=== PATIENT | female | born 1995 | race Caucasian/White ===

== ENCOUNTER 2017-04-28 00:13 | Inpatient (IN) | payer OTHER ==
[2017-04-28] VITALS (16 sets, daily range): BP systolic 93–117; BP diastolic 41–72
[~2017-04-28] VITALS: Ht 157.5 cm; Wt 75.7 kg
[~2017-04-28 00:13] MED LIST: PRENATAL VITAMI1 TA2
[2017-04-28 00:44] LABS: URINE BILIRUBIN - DIPSTICK NEGATIVE (NEGATIVE); URINE BLOOD DIPSTICK NEGATIVE (NEGATIVE); URINE CLARITY CLEAR; URINE COLOR YELLOW; URINE GLUCOSE - DIPSTICK NEGATIVE (NEGATIVE); URINE KETONE TRACE mg/dL (NEGATIVE); URINE NITRITE - DIPSTICK NEGATIVE (Negative); URINE PH 6.5 (4.5-8.0); URINE PROTEIN - DIPSTICK NEGATIVE (NEG-TRACE); URINE SPECIFIC GRAVITY <=1.005; URINE UROBILINOGEN - DIPSTICK 0.2 E.U./dL (0.2)
[2017-04-28 00:49] LABS: BARBITURATES NEGATIVE (NEGATIVE); COCAINE NEGATIVE (NEGATIVE); METHADONE NEGATIVE (NEGATIVE); OXCYCODONE NEGATIVE (NEGATIVE); TETRAHYDROCANNABIONOL NEGATIVE (NEGATIVE); TRICYLIC ANTIDEPRESSANTS NEGATIVE (NEGATIVE); URINE LEUK ESTERASE MODERATE (NEGATIVE)
[2017-04-28 00:58] LABS: URINE BACTERIA MODERATE hpf; URINE RBC 0-2 RBC/hpf (0-5)
[2017-04-28] MEDS ORDERED: IRON325 M1 PO (00:58)
[2017-04-28 08:44] LABS: HEMATOCRIT 30.5 % (37.0-47.0); HEMOGLOBIN 10.1 g/dl (12.0-16.0); IMMATURE GRANULOCYTES 0.5 % (0.0-1.0); MEAN CELL VOLUME 96.2 fL CALC (80.0-100.0); MEAN CORPUSCULAR HGB 31.9 pG CALC (26.0-32.0); MEAN CORPUSCULAR HGB CONC 33.1 g/L CALC (32.0-36.0); RED BLOOD COUNT 3.17 mill/uL (4.20-5.60); RED CELL DISTRI WIDTH 13.3 % (11.5-15.5)
[2017-04-28 08:46] LABS: ALBUMIN 3.3 g/dL (3.2-5.0); ALKALINE PHOSPHATASE 91 u/l (38-126); ANION GAP 13 (6-22 (CALC)); BILIRUBIN, TOTAL 0.6 mg/dL (0.0-1.4); BUN 3 mg/dL (8-21); BUN/CREATININE RATIO 5 (12-20 (CALC)); CALCIUM 8.4 mg/dL (8.4-10.2); CARBON DIOXIDE 19 mmol/l (22-30); CHLORIDE 111 mmol/l (95-108); CREATININE 0.6 mg/dL (0.5-1.0); GFR > 60 ML/MIN (>=60 (CALC)); GFR FOR AFR.AMER. > 60 ML/MIN (>=60 (CALC)); GLUCOSE 80 mg/dL (70-106); POTASSIUM 3.8 mmol/l (3.5-5.1); SGOT/AST 26 u/l (14-36); SGPT/ALT 28 u/l (9-52); SODIUM 139 mmol/l (137-146)
[2017-04-29] VITALS (8 sets, daily range): BP systolic 103–112; BP diastolic 45–63
[2017-04-29 07:36] LABS: HEMATOCRIT 29.3 % (37.0-47.0); IMMATURE GRANULOCYTES 0.8 % (0.0-1.0); MEAN CELL VOLUME 94.2 fL CALC (80.0-100.0); MEAN CORPUSCULAR HGB 32.2 pG CALC (26.0-32.0); MEAN CORPUSCULAR HGB CONC 34.1 g/L CALC (32.0-36.0); NEUT# 10.65 thou/uL (2.00-7.15); RED BLOOD COUNT 3.11 mill/uL (4.20-5.60); RED CELL DISTRI WIDTH 13.4 % (11.5-15.5)
[2017-04-29 08:38] LABS: ALBUMIN 3.1 g/dL (3.2-5.0); ALKALINE PHOSPHATASE 111 u/l (38-126); ANION GAP 14 (6-22 (CALC)); BILIRUBIN, TOTAL 0.4 mg/dL (0.0-1.4); BUN 4 mg/dL (8-21); BUN/CREATININE RATIO 7 (12-20 (CALC)); CALCIUM 9.3 mg/dL (8.4-10.2); CARBON DIOXIDE 19 mmol/l (22-30); CHLORIDE 110 mmol/l (95-108); CREATININE 0.6 mg/dL (0.5-1.0); GFR > 60 ML/MIN (>=60 (CALC)); GFR FOR AFR.AMER. > 60 ML/MIN (>=60 (CALC)); GLUCOSE 77 mg/dL (70-106); POTASSIUM 3.4 mmol/l (3.5-5.1); SGOT/AST 18 u/l (14-36); SGPT/ALT 29 u/l (9-52); SODIUM 139 mmol/l (137-146); TOTAL PROTEIN 5.7 g/dL (6.3-8.2)
[2017-04-30] VITALS (7 sets, daily range): BP systolic 91–118; BP diastolic 44–55
[2017-04-30 02:51] LABS: HEMATOCRIT 25.5 % (37.0-47.0); HEMOGLOBIN 8.7 g/dl (12.0-16.0); IMMATURE GRANULOCYTES 0.7 % (0.0-1.0); MEAN CELL VOLUME 92.7 fL CALC (80.0-100.0); MEAN CORPUSCULAR HGB 31.6 pG CALC (26.0-32.0); MEAN CORPUSCULAR HGB CONC 34.1 g/L CALC (32.0-36.0); NEUT# 8.01 thou/uL (2.00-7.15); RED BLOOD COUNT 2.75 mill/uL (4.20-5.60); RED CELL DISTRI WIDTH 13.2 % (11.5-15.5)
[2017-04-30 02:57] LABS: ALBUMIN 2.5 g/dL (3.2-5.0); ALKALINE PHOSPHATASE 94 u/l (38-126); ANION GAP 12 (6-22 (CALC)); BILIRUBIN, TOTAL 0.2 mg/dL (0.0-1.4); BUN 3 mg/dL (8-21); BUN/CREATININE RATIO 5 (12-20 (CALC)); CARBON DIOXIDE 18 mmol/l (22-30); CHLORIDE 107 mmol/l (95-108); CREATININE 0.6 mg/dL (0.5-1.0); GFR > 60 ML/MIN (>=60 (CALC)); GFR FOR AFR.AMER. > 60 ML/MIN (>=60 (CALC)); GLUCOSE 115 mg/dL (70-106); POTASSIUM 2.8 mmol/l (3.5-5.1); SGOT/AST 13 u/l (14-36); SGPT/ALT 19 u/l (9-52); SODIUM 135 mmol/l (137-146); TOTAL PROTEIN 4.9 g/dL (6.3-8.2)
[2017-04-30 20:41] LABS: URINE BILIRUBIN - DIPSTICK NEGATIVE (NEGATIVE); URINE BLOOD DIPSTICK NEGATIVE (NEGATIVE); URINE CLARITY CLEAR; URINE COLOR YELLOW; URINE GLUCOSE - DIPSTICK NEGATIVE (NEGATIVE); URINE KETONE 40 mg/dL (NEGATIVE); URINE LEUK ESTERASE NEGATIVE (NEGATIVE); URINE NITRITE - DIPSTICK NEGATIVE (Negative); URINE PROTEIN - DIPSTICK NEGATIVE (NEG-TRACE); URINE UROBILINOGEN - DIPSTICK 0.2 E.U./dL (0.2)
[2017-05-01 02:00] VITALS: BP 114/68
[2017-05-01 06:00] VITALS: BP 99/45
[2017-05-01 06:18] LABS: HEMATOCRIT 22.2 % (37.0-47.0); HEMOGLOBIN 7.6 g/dl (12.0-16.0); IMMATURE GRANULOCYTES 1.1 % (0.0-1.0); MEAN CELL VOLUME 92.1 fL CALC (80.0-100.0); MEAN CORPUSCULAR HGB 31.5 pG CALC (26.0-32.0); MEAN CORPUSCULAR HGB CONC 34.2 g/L CALC (32.0-36.0); NEUT# 3.05 thou/uL (2.00-7.15); RED BLOOD COUNT 2.41 mill/uL (4.20-5.60)
[2017-05-01 06:35] LABS: ANION GAP 8 (6-22 (CALC)); BUN < 2 mg/dL (8-21); CALCIUM 7.9 mg/dL (8.4-10.2); CARBON DIOXIDE 21 mmol/l (22-30); CHLORIDE 109 mmol/l (95-108); CREATININE 0.5 mg/dL (0.5-1.0); GFR > 60 ML/MIN (>=60 (CALC)); GFR FOR AFR.AMER. > 60 ML/MIN (>=60 (CALC)); GLUCOSE 80 mg/dL (70-106); SODIUM 136 mmol/l (137-146)
[2017-05-01 07:19] VITALS: BP 114/64
[2017-05-01 09:13] VITALS: BP 114/75
== END 2017-05-01 09:34 | disposition short-term general hospital (02) | DRG 781 ==
LOC: OB 00:13 → OBOP 00:13 → OB 00:13 → OBOP 10:06 → OB 10:07
PROVIDERS: ADMIT Obstetrics & Gynecology; ATTEND Obstetrics & Gynecology
PROC: 02HV33Z Insertion of Infusion Device into Superior Vena Cava, Percutaneous Approach (ICD-10-PCS; principal; 2017-04-30)
PROC: B518ZZA Fluoroscopy of Superior Vena Cava, Guidance (ICD-10-PCS; 2017-04-30)
DX: O98.813 Other maternal infectious and parasitic diseases complicating pregnancy, third trimester (principal); A41.51 Sepsis due to Escherichia coli [E. coli]; O23.03 Infections of kidney in pregnancy, third trimester; N13.6 Pyonephrosis; O99.333 Smoking (tobacco) complicating pregnancy, third trimester; F17.210 Nicotine dependence, cigarettes, uncomplicated; O99.513 Diseases of the respiratory system complicating pregnancy, third trimester; J45.909 Unspecified asthma, uncomplicated; K08.9 Disorder of teeth and supporting structures, unspecified; O99.013 Anemia complicating pregnancy, third trimester; D64.9 Anemia, unspecified; Z16.12 Extended spectrum beta lactamase (ESBL) resistance; Z3A.30 30 weeks gestation of pregnancy

== ENCOUNTER 2017-06-16 15:36 | Inpatient (IN) | payer OTHER ==
[2017-06-16] VITALS (15 sets, daily range): BP systolic 98–126; BP diastolic 50–68
[~2017-06-16] VITALS: Ht 157.5 cm; Wt 68.9 kg
[~2017-06-16 15:36] MED LIST changes: +IRON325 M1 PO
[2017-06-16 15:45] LABS: URINE BLOOD DIPSTICK MODERATE (NEGATIVE); URINE CLARITY SLIGHT CLOUDY; URINE GLUCOSE - DIPSTICK NEGATIVE (NEGATIVE); URINE KETONE >=80 mg/dL (NEGATIVE); URINE LEUK ESTERASE NEGATIVE (NEGATIVE); URINE PH 6.5 (4.5-8.0); URINE PROTEIN - DIPSTICK 30 mg/dL (NEG-TRACE); URINE SPECIFIC GRAVITY 1.025; URINE UROBILINOGEN - DIPSTICK 0.2 E.U./dL (0.2)
[2017-06-16 15:47] LABS: URINE COLOR DK. YELLOW; URINE NITRITE - DIPSTICK POSITIVE (Negative)
[2017-06-16 15:48] LABS: URINE BILIRUBIN - DIPSTICK NEGATIVE (NEGATIVE)
[2017-06-16 15:49] LABS: BARBITURATES NEGATIVE (NEGATIVE); COCAINE NEGATIVE (NEGATIVE); METHADONE NEGATIVE (NEGATIVE); OXCYCODONE NEGATIVE (NEGATIVE); TETRAHYDROCANNABIONOL NEGATIVE (NEGATIVE); TRICYLIC ANTIDEPRESSANTS NEGATIVE (NEGATIVE)
[2017-06-16 15:51] LABS: URINE SQUAMOUS EPITHELIAL CELL FEW EPI/hpf (0-FEW)
[2017-06-16 15:52] LABS: URINE BACTERIA FEW hpf; URINE MUCUS FEW hpf (NONE-FEW)
[2017-06-16 17:07] LABS: HEMATOCRIT 31.1 % (37.0-47.0); HEMOGLOBIN 10.5 g/dl (12.0-16.0); IMMATURE GRANULOCYTES 0.8 % (0.0-1.0); MEAN CELL VOLUME 92.3 fL CALC (80.0-100.0); MEAN CORPUSCULAR HGB 31.2 pG CALC (26.0-32.0); MEAN CORPUSCULAR HGB CONC 33.8 g/L CALC (32.0-36.0); NEUT# 18.23 thou/uL (2.00-7.15); RED BLOOD COUNT 3.37 mill/uL (4.20-5.60); RED CELL DISTRI WIDTH 13.7 % (11.5-15.5)
[2017-06-16 17:26] LABS: ALBUMIN 3.7 g/dL (3.2-5.0); ALKALINE PHOSPHATASE 186 u/l (38-126); ANION GAP 15 (6-22 (CALC)); BILIRUBIN, TOTAL 0.9 mg/dL (0.0-1.4); BUN 5 mg/dL (7-17); BUN/CREATININE RATIO 8 (12-20 (CALC)); CALCIUM 9.2 mg/dL (8.4-10.2); CARBON DIOXIDE 18 mmol/l (22-30); CHLORIDE 105 mmol/l (95-108); CREATININE 0.7 mg/dL (0.5-1.0); GFR > 60 ML/MIN (>=60 (CALC)); GFR FOR AFR.AMER. > 60 ML/MIN (>=60 (CALC)); GLUCOSE 78 mg/dL (65-105); POTASSIUM 3.9 mmol/l (3.5-5.1); SGOT/AST 20 u/l (14-36); SGPT/ALT 29 u/l (9-52); SODIUM 134 mmol/l (137-146); TOTAL PROTEIN 6.5 g/dL (6.3-8.2)
[2017-06-17] VITALS (20 sets, daily range): BP systolic 85–130; BP diastolic 48–69
[2017-06-17 05:55] LABS: HEMATOCRIT 27.5 % (37.0-47.0); HEMOGLOBIN 9.4 g/dl (12.0-16.0); MEAN CELL VOLUME 91.7 fL CALC (80.0-100.0); MEAN CORPUSCULAR HGB 31.3 pG CALC (26.0-32.0); MEAN CORPUSCULAR HGB CONC 34.2 g/L CALC (32.0-36.0); NEUT# 15.01 thou/uL (2.00-7.15); RED CELL DISTRI WIDTH 13.4 % (11.5-15.5)
[2017-06-17 06:27] LABS: ALBUMIN 2.9 g/dL (3.2-5.0); ALKALINE PHOSPHATASE 154 u/l (38-126); ANION GAP 14 (6-22 (CALC)); BILIRUBIN, TOTAL 0.7 mg/dL (0.0-1.4); BUN 5 mg/dL (7-17); BUN/CREATININE RATIO 9 (12-20 (CALC)); CALCIUM 8.4 mg/dL (8.4-10.2); CARBON DIOXIDE 19 mmol/l (22-30); CHLORIDE 108 mmol/l (95-108); CREATININE 0.5 mg/dL (0.5-1.0); GFR > 60 ML/MIN (>=60 (CALC)); GFR FOR AFR.AMER. > 60 ML/MIN (>=60 (CALC)); GLUCOSE 89 mg/dL (65-105); POTASSIUM 3.4 mmol/l (3.5-5.1); SGOT/AST 16 u/l (14-36); SGPT/ALT 19 u/l (9-52); SODIUM 137 mmol/l (137-146); TOTAL PROTEIN 5.5 g/dL (6.3-8.2)
[2017-06-18 02:38] VITALS: BP 95/57
[2017-06-18 06:22] LABS: HEMATOCRIT 25.5 % (37.0-47.0); HEMOGLOBIN 8.6 g/dl (12.0-16.0); IMMATURE GRANULOCYTES 0.7 % (0.0-1.0); MEAN CELL VOLUME 93.1 fL CALC (80.0-100.0); MEAN CORPUSCULAR HGB 31.4 pG CALC (26.0-32.0); MEAN CORPUSCULAR HGB CONC 33.7 g/L CALC (32.0-36.0); NEUT# 8.74 thou/uL (2.00-7.15); RED BLOOD COUNT 2.74 mill/uL (4.20-5.60); RED CELL DISTRI WIDTH 13.6 % (11.5-15.5)
[2017-06-18 09:20] VITALS: BP 104/54
[2017-06-18 14:11] VITALS: BP 106/46
[2017-06-18 17:13] VITALS: BP 106/47
[2017-06-18 19:10] VITALS: BP 119/54
[2017-06-18 19:15] VITALS: BP 119/54
[2017-06-19 10:54] VITALS: BP 101/63
[2017-06-19 15:00] VITALS: BP 119/57
[2017-06-19 21:10] VITALS: BP 105/62
[2017-06-19 22:00] VITALS: BP 118/58
[2017-06-19 23:00] VITALS: BP 118/58
[2017-06-20] VITALS (23 sets, daily range): BP systolic 106–142; BP diastolic 53–78
[2017-06-20 06:44] LABS: HEMATOCRIT 25.2 % (37.0-47.0); HEMOGLOBIN 8.6 g/dl (12.0-16.0); IMMATURE GRANULOCYTES 0.5 % (0.0-1.0); MEAN CELL VOLUME 91.6 fL CALC (80.0-100.0); MEAN CORPUSCULAR HGB 31.3 pG CALC (26.0-32.0); MEAN CORPUSCULAR HGB CONC 34.1 g/L CALC (32.0-36.0); NEUT# 5.36 thou/uL (2.00-7.15); RED BLOOD COUNT 2.75 mill/uL (4.20-5.60); RED CELL DISTRI WIDTH 13.3 % (11.5-15.5)
[2017-06-21] VITALS (28 sets, daily range): BP systolic 103–138; BP diastolic 54–87
[2017-06-23] MEDS ORDERED: MACROBID100 MG PO (14:25)
[2017-06-23] MEDS ORDERED: MACRODANTIN100 MG PO (14:27)
== END 2017-06-21 15:05 | disposition home or self-care (01) | DRG 781 ==
LOC: OB 15:36 → OBOP 15:36 → OB 16:00
PROVIDERS: ADMIT Obstetrics & Gynecology; ATTEND Obstetrics & Gynecology
PROC: 3E0P3VZ Introduction of Hormone into Female Reproductive, Percutaneous Approach (ICD-10-PCS; principal; 2017-06-20)
DX: O23.03 Infections of kidney in pregnancy, third trimester (principal); O36.5930 Maternal care for other known or suspected poor fetal growth, third trimester, not applicable or unspecified; N12 Tubulo-interstitial nephritis, not specified as acute or chronic; F17.210 Nicotine dependence, cigarettes, uncomplicated; J45.909 Unspecified asthma, uncomplicated; O99.513 Diseases of the respiratory system complicating pregnancy, third trimester; O99.333 Smoking (tobacco) complicating pregnancy, third trimester; B96.20 Unspecified Escherichia coli [E. coli] as the cause of diseases classified elsewhere; O61.0 Failed medical induction of labor; Z3A.36 36 weeks gestation of pregnancy

== ENCOUNTER 2017-06-28 04:38 | Inpatient (IN) | payer OTHER ==
[2017-06-28] VITALS (56 sets, daily range): BP systolic 87–138; BP diastolic 42–85
[~2017-06-28] VITALS: Ht 157.5 cm; Wt 69.4 kg
[~2017-06-28 04:38] MED LIST changes: +MACROBID100 MG PO; +MACRODANTIN100 MG PO
--- NOTE | 2017-06-28 04:44 | NUR ---
ARRIVAL TO OB UNIT ACCOMPANIED BY MOTHER, C/O LABOR. ORIENTED TO ROOM AND CALL SYSTEM. [id number], EDC 06/30/17 = 39+5 WEEKS GESTATION. DENIES BLEEDING/ROM. FETUS ACTIVE. PLAN OF CARE TO MONITOR FOR WELL-BEING AND UTERINE ACTIVITY, OBTAIN URINE SAMPLE FOR ANALYSIS AND DOA, CERVICAL EXAM FOR LABOR PROGRESS, DISCUSSED WITH PATIENT AND AGRED UPON.
[2017-06-28 05:07] LABS: URINE BILIRUBIN - DIPSTICK NEGATIVE (NEGATIVE); URINE BLOOD DIPSTICK NEGATIVE (NEGATIVE); URINE CLARITY CLEAR; URINE COLOR YELLOW; URINE GLUCOSE - DIPSTICK NEGATIVE (NEGATIVE); URINE KETONE NEGATIVE (NEGATIVE); URINE LEUK ESTERASE NEGATIVE (NEGATIVE); URINE NITRITE - DIPSTICK NEGATIVE (Negative); URINE PH 6.5 (4.5-8.0); URINE PROTEIN - DIPSTICK NEGATIVE (NEG-TRACE); URINE UROBILINOGEN - DIPSTICK 0.2 E.U./dL (0.2)
[2017-06-28 05:10] LABS: BARBITURATES NEGATIVE (NEGATIVE); COCAINE NEGATIVE (NEGATIVE); METHADONE NEGATIVE (NEGATIVE); OXCYCODONE NEGATIVE (NEGATIVE); TETRAHYDROCANNABIONOL NEGATIVE (NEGATIVE); TRICYLIC ANTIDEPRESSANTS NEGATIVE (NEGATIVE)
--- NOTE | 2017-06-28 05:46 | NUR ---
MONITOR REMOVED SO PT CAN AMBULATE IN HALLWAY. STATES CAN'T FEEL CONTRACTIONS, NO PAIN. STATES SHE FEELS THEY ARE SPREADING OUT. STATES BABY IS STILL ACTIVE. PT'S MOTHER REMAINS IN ROOM.
--- NOTE | 2017-06-28 06:36 | NUR ---
BACK TO ROOM STATING SHE IS TIRED AND WANTS TO REST. MONITOR REAPPLIED. STATES PAIN LEVEL IS 0/10 WITH CONTRACTIONS.
--- NOTE | 2017-06-28 06:52 | NUR ---
REPORT GIVEN TO VIOLETTA LEYVA RN ON PT STATUS. PT DOZING ON AND OFF IN BED. MOTHER REMAINS AT BEDSIDE.
--- NOTE | 2017-06-28 06:58 | NUR ---
SVE of 1 to 2 cm, 30%, 0 station.
--- NOTE | 2017-06-28 07:00 | NUR ---
heart rate of 135, Contractions noted every 8 minutes lasting 50 to 60 seconds in duration.
--- NOTE | 2017-06-28 07:01 | NUR ---
Call to Dr. Spangler to notify of patient's presence on unit. SVE of 1 to 2 cm, -1 station, 30% effacement.
--- NOTE | 2017-06-28 07:05 | NUR ---
Patient informed that Dr. Spangler will be on unit to talk to patient and see her.
--- NOTE | 2017-06-28 07:30 | NUR ---
Patient lying on her side at present moment. [place] on. Patient denies feeling any contractions.
--- NOTE | 2017-06-28 08:20 | NUR ---
Dr. Spangler on unit assessing patient at present time. SVE done with result of 2 cm, 80%, -2 station. Order for labs and IV of LR and Pitocin induction to begin at 2mu/min.
--- NOTE | 2017-06-28 09:00 | NUR ---
[place] started by Driss Owens RN from ER after 2 attempts by RN. I8 guage catheter to left forearm started with IV fluids of LR at 125cc/hr. Labs for CBC, CMP, and Type and screen drawn and sent to lab after consent for treatment done.
--- NOTE | 2017-06-28 09:40 | NUR ---
Pitocin at 2mu/min initiated at present time.
--- NOTE | 2017-06-28 09:40 | NUR ---
heart rate baseline of 120, Moderate variability, good accels, no decels noted.
[2017-06-28 09:43] LABS: HEMATOCRIT 30.5 % (37.0-47.0); HEMOGLOBIN 10.3 g/dl (12.0-16.0); IMMATURE GRANULOCYTES 0.8 % (0.0-1.0); MEAN CELL VOLUME 91.9 fL CALC (80.0-100.0); MEAN CORPUSCULAR HGB CONC 33.8 g/L CALC (32.0-36.0); NEUT# 9.09 thou/uL (2.00-7.15); RED BLOOD COUNT 3.32 mill/uL (4.20-5.60); RED CELL DISTRI WIDTH 13.9 % (11.5-15.5)
[2017-06-28 09:53] LABS: ALBUMIN 3.5 g/dL (3.2-5.0); ALKALINE PHOSPHATASE 159 u/l (38-126); ANION GAP 14 (6-22 (CALC)); BILIRUBIN, TOTAL 0.4 mg/dL (0.0-1.4); BUN 8 mg/dL (7-17); BUN/CREATININE RATIO 16 (12-20 (CALC)); CALCIUM 9.6 mg/dL (8.4-10.2); CARBON DIOXIDE 20 mmol/l (22-30); CHLORIDE 110 mmol/l (95-108); CREATININE 0.5 mg/dL (0.5-1.0); GFR > 60 ML/MIN (>=60 (CALC)); GFR FOR AFR.AMER. > 60 ML/MIN (>=60 (CALC)); GLUCOSE 81 mg/dL (65-105); POTASSIUM 4.5 mmol/l (3.5-5.1); SGOT/AST 14 u/l (14-36); SGPT/ALT 31 u/l (9-52); SODIUM 138 mmol/l (137-146); TOTAL PROTEIN 6.4 g/dL (6.3-8.2)
--- NOTE | 2017-06-28 09:56 | NUR ---
Patient up to bathroom and voided 400cc of urine.
--- NOTE | 2017-06-28 10:42 | NUR ---
Pitocin at 4mu/min initiated. heart of 125. Moderate variability, good accels no decels noted. contractions irregular occuring every 15 minutes. Patient denies feeling any pain at present moment.
--- NOTE | 2017-06-28 11:08 | NUR ---
Patient's mother to bedside at present time offering support at this time.
--- NOTE | 2017-06-28 11:09 | NUR ---
Patient denies feeling any contractions at this time. Will continue to monitor.
--- NOTE | 2017-06-28 11:25 | NUR ---
Pitocin up to 6 mu/min at present time.
--- NOTE | 2017-06-28 11:25 | NUR ---
Patient having contractions every 2 to 3 minutes lasting 50 to 60 seconds in duration. Patient denies feeling contractions.
--- NOTE | 2017-06-28 11:40 | NUR ---
Dr. Spangler on unit. AROM for clear fluids at present time. Patient instructed that contractions will picking belt operator at this time and get stronger and closer together. Patient verbalized understanding of such.
--- NOTE | 2017-06-28 12:50 | NUR ---
Patient in room with mother to bedside. Patient states she is starting feel contractions at present moment.
--- NOTE | 2017-06-28 12:51 | NUR ---
heart rate with baseline of 135, Moderate variability, good accels, no decels.
--- NOTE | 2017-06-28 12:52 | NUR ---
Pitocin continues at 6mu/min at present time. Contractions occuring with 5 in 10 minutes. Will continue to monitor.
--- NOTE | 2017-06-28 13:37 | NUR ---
Penicillin G 2.5mu given IV as ordered.
--- NOTE | 2017-06-28 14:25 | NUR ---
Contractions becoming irregular occuring every 1 to 9 minutes. Pitocin up to 8mu/min, heart rate baseline of 135, Moderate variability, good accels, no decels. [place] readjusted. Patient states pain level of 4 on scale of 1 to 10. Denies feeling urge to push or pressure at this time.
--- NOTE | 2017-06-28 14:25 | NUR ---
Patient lying on her right side at this time stating that she feels comfortable.
--- NOTE | 2017-06-28 15:21 | NUR ---
Patient up to bathroom voided 900cc of urine. Patient states she would like pain medication. SVE of 4cm, 80% effaced, -2 station.
--- NOTE | 2017-06-28 15:21 | NUR ---
Nubain 10mg iv given as ordered.
--- NOTE | 2017-06-28 15:54 | NUR ---
Patient resting in between contractions with eyes closed breathing comfortably. Significant other to bedside along with mother of patient offering emotional support.
--- NOTE | 2017-06-28 16:11 | NUR ---
Patient states she feels contractions and rating her pain of 8 on a scale of 1 to 10. Patient breathing in between contractions.
--- NOTE | 2017-06-28 16:30 | NUR ---
Dr. Spangler on unit, SVE done with 5cm, 90%, and 0 station.
--- NOTE | 2017-06-28 16:45 | NUR ---
Patient voided 500cc of urine well.
--- NOTE | 2017-06-28 16:45 | NUR ---
Patient moved to birthing room at present time.
--- NOTE | 2017-06-28 17:00 | NUR ---
Penicillin 2.5 given iv as ordered.
--- NOTE | 2017-06-28 17:30 | NUR ---
Dr. Spangler called and notified that pitocin off as variables noted. SVE done with result of rim and patient pushing with contractions per md order.
--- NOTE | 2017-06-28 17:52 | NUR ---
heart sounds via ultrasound difficult. Patient placed on side. Oxygen via mask, Dr. Spangler notified after heart rate of 135. FSE placed via Dr. Spangler.
--- NOTE | 2017-06-28 18:15 | NUR ---
Patient breathing in between contractions. heart rate of 125 baseline. Contractions occuring every 2 to 3 minutes lasting from 30 to 60 seconds in duration.
--- NOTE | 2017-06-28 18:30 | NUR ---
Dr. Spangler in room discussing option of epidural with patient. Patient verbalizes understanding and agrees for epidural.
--- NOTE | 2017-06-28 18:39 | NUR ---
CALL PLACED TO Ilda BENTLEY CRNA AND REPORT GIVEN RE/ MD REQUEST FOR EPIDURAL. STATES WILL BE HERE TO ASSESS.
--- NOTE | 2017-06-28 18:45 | NUR ---
Report being given to oncoming shift.
--- NOTE | 2017-06-28 18:45 | NUR ---
WATCH INSPECTOR FINAL MOVEMENT ON UNIT.
--- NOTE | 2017-06-28 19:10 | NUR ---
MIRNA BENTLEY, POLYMER TESTER, IN AND ADMINISTERING EPIDURAL ANESTHESIA. FAMILY AT BEDSIDE, SUPPORTING PT.
--- NOTE | 2017-06-28 19:20 | NUR ---
PER Arlene LEYVA RN, TOBACCO CESSATION WAS DISCUSSED EARLIER WITH PATIENT AND LITERATURE WAS OFFERED. AT THIS TIME, PATIENT DECLINED.
--- NOTE | 2017-06-28 20:30 | NUR ---
DR. VELARDE PERFORMED SVE. ORDERS RECEIVED TO RESTART IV PITOCIN FOR LABOR AUGMENTATION ON MED. PUMP.VARIABLE DECELERATION NOTED FOR 20SEC WHEN PT WAS POSITIONED ON BACK FOR EXAM. FHR RETURNED TO BASELINE OF 120 AFTER EXAM.
--- NOTE | 2017-06-28 21:19 | NUR ---
DR. VELARDE INFORMED OF LATE DECELERATIONS AND PITOCIN DISCONTINUED. WILL BE HERE TO EVALUATE.
--- NOTE | 2017-06-28 21:30 | NUR ---
2119: BASELINE FHR 120BPM. UTERINE CONTRACTIONS Q2-5MINS WITH VARIABLE DECELS. NOTED. IV PITOCIN TURNED OFF, AT 2109 HRS, DR. VELARDE ON UNIT, O2 BY NON-BREATHER MASK ADM. AT10L. 2129: DR VELARDE IN ROOM AND INSTRUCTED PT TO PUSH.
--- NOTE | 2017-06-28 21:49 | NUR ---
OF A LIVING MALE BY DR. VELARDE.
--- NOTE | 2017-06-28 23:30 | NUR ---
PT. ASSISTED OOB TO BATHROOM. NO DIZZINESS. VOIDED. PERICARE DEMONSTRATED AND PT. RETURNED DEMO.SATISFACTORLY. TRANSFERED TO ROOM WHERE SHE BOBDED WITH HER .IV FLUID WITH PITOCIN INFUSING. NO C/O DISCOMFORT AT THIS TIME. SNACK GIVEN.
[2017-06-29] VITALS: BP 127/61
--- NOTE | 2017-06-29 04:36 | NUR ---
RESTING WITH EYES CLOSED. SIDE RAILS UP X 2, CALL BAKER WITHIN REACH.
[2017-06-29 05:50] VITALS: BP 111/69
--- NOTE | 2017-06-29 05:50 | NUR ---
LABS DRAWN FROM RT. ANTECUBITAL WITHOUT DIFFICULTY. PATIENT TOLERATED WELL. IV INFUSING ORDERED. REINFORCED PREVIOUS TEACHING TO CHANGE PERIPADS EVERY 2 HOURS WHILE AWAKE AND KEEP BLADDER EMPTY. VERBALIZED UNDERSTANDING.
[2017-06-29 06:02] LABS: HEMATOCRIT 27.5 % (37.0-47.0); HEMOGLOBIN 9.5 g/dl (12.0-16.0); IMMATURE GRANULOCYTES 0.6 % (0.0-1.0); MEAN CELL VOLUME 90.2 fL CALC (80.0-100.0); MEAN CORPUSCULAR HGB 31.1 pG CALC (26.0-32.0); MEAN CORPUSCULAR HGB CONC 34.5 g/L CALC (32.0-36.0); NEUT# 12.32 thou/uL (2.00-7.15); RED BLOOD COUNT 3.05 mill/uL (4.20-5.60); RED CELL DISTRI WIDTH 13.7 % (11.5-15.5)
--- NOTE | 2017-06-29 06:27 | NUR ---
NO FURTHER CLINICAL NEEDS IDENTIFIED AT THIS TIME. REPORT PREPARED FOR ONCOMING SHIFT.
--- NOTE | 2017-06-29 07:11 | NUR ---
PT SLEEPING IN ROOM COMFORTABLY. PT DENIES ANY PAIN OR EXCESSIVE BLEEDING. PT REQUESTS TO SLEEP A LITTLE LONGER. RN WILL CONTINUE TO MONITOR.
--- NOTE | 2017-06-29 11:30 | NUR ---
ESTUARDO POLLACK HEALTHY START AT BEDSIDE DISCUSSING OPTIONS WITH MOTHER.
[2017-06-29 13:39] VITALS: BP 115/63
--- NOTE | 2017-06-29 17:39 | NUR ---
PT IN ROOM WITH INFANT, PT EATING GOURMET MEAL. PT DENIES ANY NEEDS AT THIS TIME.
[2017-06-29 17:56] VITALS: BP 119/55
--- NOTE | 2017-06-29 18:45 | NUR ---
REPORT RECEIVED FROM RAJIV RO RN ON PT STATUS. PT HOLDING . HAS NO COMPLAINTS OF PAIN. BED IN LOW POSITION AND CALL LIGHT WITHIN REACH. SIGNIFICANT OTHER AT BEDSIDE.
[2017-06-29 19:47] VITALS: BP 117/58
--- NOTE | 2017-06-29 21:25 | NUR ---
PT HOLDING . HAS NO COMPLAINTS OF PAIN OR DISCOMFORT. BED IN LOW POSITION, CALL LIGHT WITHIN REACH. PO FLUIDS GIVEN REQUESTED BY PT. SIGNIFICANT OTHER AT BEDSIDE.
--- NOTE | 2017-06-29 23:35 | NUR ---
WATCHING TV. NO COMPLAINTS. DENIES PAIN.
--- NOTE | 2017-06-30 02:12 | NUR ---
PT SLEEPING SOUNDLY. NO SIGNS OF DISTRESS. CALL LIGHT WITHIN REACH. INFANT AND SIGNIFICANT OTHER SLEEPING.
--- NOTE | 2017-06-30 06:26 | NUR ---
PT SLEEPING SOUNDLY. NO SIGNS OF DISTRESS. BED IN LOW POSITION AND CALL LIGHT WITHIN REACH. BATHROOM LIGHT ON FOR SAFETY.
--- NOTE | 2017-06-30 07:00 | NUR ---
RECEIVED CARE OF PT. RESTING IN BED WITH SIGNIFICANT OTHER AT BEDSIDE. CARE REVIEWED. PT STATES SHE HAD BOWEL MOVEMENT. DENIES PAIN AT THIS TIME, DENIES S/S OF DEPRESSION. EPIDURAL SITE WNL, NO REDNESS OR SWELLING. VITAL SIGNS CHARTED. PT WITH NO QUESTIONS OR CONCERNS. CALL LIGHT WITHIN REACH.
[2017-06-30 07:21] VITALS: BP 103/56
--- NOTE | 2017-06-30 09:30 | NUR ---
Dr Spangler in to see pt. Received new orders. Pt instructed to go to Dr office immediately if fever develops or pt has problems with kidneys. Pt verbalizes understanding.
--- NOTE | 2017-06-30 09:40 | NUR ---
Discharge planning reviewed. Pt with no questions.
[2017-06-30] MEDS ORDERED: IBUPROFEN600 MG PO (10:14)
--- NOTE | 2017-06-30 10:32 | NUR ---
Tdap and Pneumonia vaccines given. Pt denies pain medication at this time. Will continue to monitor.
--- NOTE | 2017-06-30 12:00 | NUR ---
Discharge instructions given. Patient verbalizes understanding of same. Discharged in stable condition via Ambulatory to Home with relative. All belongings sent with pt. Prescription for Motrin given. Pt instructed to review control options prior to follow-up appt bright Spangler in 5 weeks.
== END 2017-06-30 11:20 | disposition home or self-care (01) | DRG 775 ==
LOC: OBOP 04:38 → EDSTATUS 04:39 → OBOP 04:47 → OB 04:47 → OBOP 08:29 → OB 08:30
PROVIDERS: ADMIT Obstetrics & Gynecology; ATTEND Obstetrics & Gynecology
PROC: 10D07Z6 Extraction of Products of Conception, Vacuum, Via Natural or Artificial Opening (ICD-10-PCS; principal; 2017-06-28)
PROC: 10907ZC Drainage of Amniotic Fluid, Therapeutic from Products of Conception, Via Natural or Artificial Opening (ICD-10-PCS; 2017-06-28)
DX: O36.5930 Maternal care for other known or suspected poor fetal growth, third trimester, not applicable or unspecified (principal); F17.210 Nicotine dependence, cigarettes, uncomplicated; O65.5 Obstructed labor due to abnormality of maternal pelvic organs; O99.334 Smoking (tobacco) complicating childbirth; O76 Abnormality in fetal heart rate and rhythm complicating labor and delivery; O34.43 Maternal care for other abnormalities of cervix, third trimester; Z3A.39 39 weeks gestation of pregnancy; Z37.0 Single live birth
CPT/HCPCS: J2540